=== PATIENT | female | born 1970 | race Asian ===

== ENCOUNTER → 2020-10-14 | Outpatient (CLI) | payer OTHER ==
[~2020-10-14] MED LIST: DIGOXIN 250 MCG/ML 2ML AMP ONE
== END | disposition home or self-care (01) ==
LOC: RAH 16:03
PROVIDERS: ATTEND Physical Medicine & Rehabilitation
DX: M54.12 Radiculopathy, cervical region (principal); M54.2 Cervicalgia
CPT/HCPCS: 72040